=== PATIENT | female | born 1985 | race Caucasian/White ===

== ENCOUNTER 2017-12-27 15:54 | Inpatient (IN) | payer OTHER ==
[~2017-12-27] VITALS: Ht 162.6 cm; Wt 69.7 kg
[2017-12-27 16:41] VITALS: BP 119/66; PULSE 116; RESP 18; TEMP 97.8; O2SAT 99
[2017-12-27 17:48] LABS: AUTOMATED NEUTROPHIL # 14.2 TH/MM3 (1.8-7.7); BASOPHIL % 0.1 % (0.0-2.0); HEMATOCRIT 39.1 % (35.0-46.0); HEMOGLOBIN 13.2 GM/DL (11.6-15.3); LYMPH % 4.3 % (9.0-44.0); LYMPHOCYTE # 0.7 TH/MM3 (1.0-4.8); MEAN CELL VOLUME 84.7 FL (80.0-100.0); MEAN CORPUSCULAR HEMOGLOBIN 28.6 PG (27.0-34.0); MEAN CORPUSCULAR HGB CONC 33.8 % (32.0-36.0); MEAN PLATELET VOLUME 8.3 FL (7.0-11.0); MONO % 4.2 % (0.0-8.0); MONOCYTE # 0.7 TH/MM3 (0-0.9); NEUT % 91.4 % (16.0-70.0); PLATELET COUNT 236 TH/MM3 (150-450); RED BLOOD COUNT 4.62 MIL/MM3 (4.00-5.30); RED CELL DISTRIBUTION WIDTH 14.6 % (11.6-17.2); WHITE BLOOD COUNT 15.5 TH/MM3 (4.0-11.0)
[2017-12-27 18:03] LABS: ALBUMIN 3.6 GM/DL (3.4-5.0); ALT (GPT) 29 U/L (10-53); AST (GOT) 22 U/L (15-37); BLOOD UREA NITROGEN 15 MG/DL (7-18); CALCIUM 9.1 MG/DL (8.5-10.1); CHLORIDE 102 MEQ/L (98-107); CREATININE 1.19 MG/DL (0.50-1.00); GLOMERULAR FILTRATION RATE 53 ML/MIN (>89); GLUCOSE,RANDOM 141 MG/DL (74-106); SODIUM (NA) 135 MEQ/L (136-145)
[2017-12-27 18:06] LABS: ALKALINE PHOSPHATASE 64 U/L (45-117); TOTAL BILIRUBIN ADULT 0.6 MG/DL (0.2-1.0); TOTAL PROTEIN 7.8 GM/DL (6.4-8.2)
[2017-12-27] MEDS ORDERED: ACETAMINOPHEN 500 MG CPLT PO PRN (21:00)
--- NOTE | 2017-12-27 21:04 | PD ---
HPI Chief Complaint: Psychiatric Symptoms Time Seen by Provider: 19:57 Travel History International Travel<30 days: No Contact w/Intl Traveler<30days: No Traveled to known affect area: No History of Present Illness HPI Patient is a 32-year-old female presenting to the emergency department under Porter act for making suicidal homicidal ideations. Patient states that she has been depressed for several months, this is exacerbated due to being off of Abilify. Patient denies any current suicidal plan or previous suicide attempts. She does endorse marijuana and drug use. She denies any chest pain, shortness of breath, abdominal pain, nausea, vomiting. She does report body aches. Symptom onset has been gradual, exacerbated by lack of medication. PFSH Past Medical History Arthritis: No Blood Disorders: No Bipolar Disorder: Yes Anxiety: No Depression: Yes Chemotherapy: No Diminished Hearing: No Endocrine: No Gastrointestinal Disorders: No Genitourinary: No Immune Disorder: No Implanted Vascular Access Dvce: Yes Musculoskeletal: Yes Neurologic: No Reproductive: No Respiratory: No Immunizations Current: No (UNABLE TO ASSESS) Radiation Therapy: No ?: Not : 0 Past Surgical History Abdominal Surgery: No AICD: No Body Medical Devices: tens unit for back pain. Cardiac Surgery: No Ear Surgery: No Endocrine Surgery: No Eye Surgery: No Genitourinary Surgery: No Gynecologic Surgery: No Joint Replacement: No Neurologic Surgery: Yes Oral Surgery: No Pacemaker: No Thoracic Surgery: No Other Surgery: Yes ("I HAD 7 BACK SURGERIES.") Social History Alcohol Use: Yes (SOCIALLY ) Tobacco Use: Yes Substance Use: Yes Allergies-Medications (Allergen,Severity, Reaction): Coded Allergies: morphine (Unverified Allergy, Severe, Itching, 12/27/17) alprazolam (Unverified Allergy, Unknown, 12/27/17) Reported Meds & Prescriptions Reported Meds & Active Scripts Active Active Prescriptions or Reported Medications Unobtainable Review of Systems Except as stated in HPI: all other systems reviewed are Neg Musculoskeletal: Positive: Myalgias Psychiatric: Positive: Depression, Suicidal Ideations, Substance Abuse Physical Exam Narrative GENERAL: Well-developed, well-nourished, alert female. Resting in no acute distress. SKIN: Warm and dry. HEAD: Atraumatic. Normocephalic. EYES: Pupils equal and round. No scleral icterus. No injection or drainage. ENT: No nasal bleeding or discharge. Mucous membranes pink and moist. NECK: Trachea midline. No JVD. CARDIOVASCULAR: Regular rate and rhythm. RESPIRATORY: No accessory muscle use. Clear to auscultation. Breath sounds equal bilaterally. GASTROINTESTINAL: Abdomen soft, non-tender, nondistended. Hepatic and splenic margins not palpable. MUSCULOSKELETAL: Extremities without clubbing, cyanosis, or edema. No obvious deformities. NEUROLOGICAL: Awake and alert. No obvious cranial nerve deficits. Motor grossly within normal limits. Five out of 5 muscle strength in the arms and legs. Normal speech. PSYCHIATRIC: Appropriate mood and affect; insight and judgment normal. Data Data Last Documented VS Vital Signs Date Time Temp Pulse Resp B/P (MAP) Pulse Ox O2 Delivery O2 Flow Rate FiO2 12/27/17 22:44 97.8 105 17 115/65 (82) 95 Room Air Orders Orders Complete Blood Count With Diff (12/27/17 16:47) Comprehensive Metabolic Panel (12/27/17 16:47) Psych Screen (12/27/17 16:47) Drug Screen, Random Urine (12/27/17 16:47) Influenzae A/B Antigen (12/27/17 20:27) Acetaminophen (Tylenol) (12/27/17 21:00) Labs Laboratory Tests Test 12/27/17 17:11 12/27/17 18:17 White Blood Count 15.5 TH/MM3 Red Blood Count 4.62 MIL/MM3 Hemoglobin 13.2 GM/DL Hematocrit 39.1 % Mean Corpuscular Volume 84.7 FL Mean Corpuscular Hemoglobin 28.6 PG Mean Corpuscular Hemoglobin Concent 33.8 % Red Cell Distribution Width 14.6 % Platelet Count 236 TH/MM3 Mean Platelet Volume 8.3 FL Neutrophils (%) (Auto) 91.4 % Lymphocytes (%) (Auto) 4.3 % Monocytes (%) (Auto) 4.2 % Eosinophils (%) (Auto) 0.0 % Basophils (%) (Auto) 0.1 % Neutrophils # (Auto) 14.2 TH/MM3 Lymphocytes # (Auto) 0.7 TH/MM3 Monocytes # (Auto) 0.7 TH/MM3 Eosinophils # (Auto) 0.0 TH/MM3 Basophils # (Auto) 0.0 TH/MM3 CBC Comment DIFF FINAL Differential Comment Blood Urea Nitrogen 15 MG/DL Creatinine 1.19 MG/DL Random Glucose 141 MG/DL Total Protein 7.8 GM/DL Albumin 3.6 GM/DL Calcium Level 9.1 MG/DL Alkaline Phosphatase 64 U/L Aspartate Amino Transf (AST/SGOT) 22 U/L Alanine Aminotransferase (ALT/SGPT) 29 U/L Total Bilirubin 0.6 MG/DL Sodium Level 135 MEQ/L Potassium Level 3.5 MEQ/L Chloride Level 102 MEQ/L Carbon Dioxide Level 27.0 MEQ/L Anion Gap 6 MEQ/L Estimat Glomerular Filtration Rate 53 ML/MIN Urine Opiates Screen NEG Urine Barbiturates Screen NEG Urine Amphetamines Screen NEG Urine Benzodiazepines Screen NEG Urine Cocaine Screen POS Urine Cannabinoids Screen POS MDM Medical Decision Making Medical Screen Exam Complete: Yes Emergency Medical Condition: Yes Interpretation(s) Laboratory Tests Test 12/27/17 17:11 12/27/17 18:17 White Blood Count 15.5 TH/MM3 Red Blood Count 4.62 MIL/MM3 Hemoglobin 13.2 GM/DL Hematocrit 39.1 % Mean Corpuscular Volume 84.7 FL Mean Corpuscular Hemoglobin 28.6 PG Mean Corpuscular Hemoglobin Concent 33.8 % Red Cell Distribution Width 14.6 % Platelet Count 236 TH/MM3 Mean Platelet Volume 8.3 FL Neutrophils (%) (Auto) 91.4 % Lymphocytes (%) (Auto) 4.3 % Monocytes (%) (Auto) 4.2 % Eosinophils (%) (Auto) 0.0 % Basophils (%) (Auto) 0.1 % Neutrophils # (Auto) 14.2 TH/MM3 Lymphocytes # (Auto) 0.7 TH/MM3 Monocytes # (Auto) 0.7 TH/MM3 Eosinophils # (Auto) 0.0 TH/MM3 Basophils # (Auto) 0.0 TH/MM3 CBC Comment DIFF FINAL Differential Comment Blood Urea Nitrogen 15 MG/DL Creatinine 1.19 MG/DL Random Glucose 141 MG/DL Total Protein 7.8 GM/DL Albumin 3.6 GM/DL Calcium Level 9.1 MG/DL Alkaline Phosphatase 64 U/L Aspartate Amino Transf (AST/SGOT) 22 U/L Alanine Aminotransferase (ALT/SGPT) 29 U/L Total Bilirubin 0.6 MG/DL Sodium Level 135 MEQ/L Potassium Level 3.5 MEQ/L Chloride Level 102 MEQ/L Carbon Dioxide Level 27.0 MEQ/L Anion Gap 6 MEQ/L Estimat Glomerular Filtration Rate 53 ML/MIN Urine Opiates Screen NEG Urine Barbiturates Screen NEG Urine Amphetamines Screen NEG Urine Benzodiazepines Screen NEG Urine Cocaine Screen POS Urine Cannabinoids Screen POS Vital Signs Date Time Temp Pulse Resp B/P (MAP) Pulse Ox O2 Delivery O2 Flow Rate FiO2 12/27/17 22:44 97.8 105 17 115/65 (82) 95 Room Air 12/27/17 16:41 97.8 116 18 119/66 (83) 99 Vital Signs Date Time Temp Pulse Resp B/P (MAP) Pulse Ox O2 Delivery O2 Flow Rate FiO2 12/27/17 16:41 97.8 116 18 119/66 (83) 99 Differential Diagnosis Mood disorder versus substance abuse or suicidal ideations versus metabolic a abnormality versus other Narrative Course Patient is a 32-year-old female presenting to the emergency department under Porter act for suicidal ideations. Patient was tachycardic on arrival, on exam her heart rate has normalized. Labs and psych screen ordered. CBC with a white blood cell count of 15.5 with left shift Chemistry with a sodium of 135, creatinine 1.19. Urine drug screen is positive for cocaine and marijuana. Influenza is pending. Influenza is negative, heart rate has trended down. Patient is medically cleared for psychiatric evaluation. Diagnosis Primary Impression: Medical clearance for psychiatric admission Scripts Unable to Obtain Active Prescriptions or Reported Meds Condition: Stable Codi Joshi Dec 27, 2017 21:04
[2017-12-27 22:44] VITALS: BP 115/65; PULSE 105; RESP 17; TEMP 97.8; O2SAT 95
[2017-12-28 06:14] VITALS: BP 123/60; PULSE 103; RESP 18; TEMP 100.1; O2SAT 97
[2017-12-28 11:05] VITALS: BP 123/60; PULSE 99; RESP 20; O2SAT 96
[2017-12-28] MEDS ORDERED: diphenhydrAMINE HCL 50 MG/ML VIAL - HS PRN IM (20:45)
[2017-12-28] MEDS ORDERED: MAGNESIUM HYDROXIDE SUSP 30 ML CUP PO PRN (20:45)
[2017-12-28] MEDS ORDERED: ACETAMINOPHEN 325 MG TAB PO PRN (20:45)
[2017-12-28] MEDS ORDERED: diphenhydrAMINE HCL 50 MG CAP - HS PRN PO (20:45)
[2017-12-28] MEDS ORDERED: diphenhydrAMINE HCL 50 MG/ML VIAL IM PRN (20:45)
[2017-12-28] MEDS ORDERED: diphenhydrAMINE HCL 50 MG CAP PO PRN (20:45)
[2017-12-28] MEDS ORDERED: hydrOXYzine HCL 50 MG TAB PO PRN (20:45)
[2017-12-28] MEDS ORDERED: ALUMINUM/MAGNESIUM/SIMETH 30 ML CUP PO PRN (20:45)
[2017-12-28] MEDS: REMOVE OLD NICOTINE PATCH T-DERMAL SCH (21:00)
[2017-12-28 23:59] VITALS: BP 120/66; PULSE 97; RESP 17; TEMP 98.1; O2SAT 98
[2017-12-29 03:40] VITALS: BP 120/66; PULSE 97; RESP 17; TEMP 98.1; O2SAT 98
[2017-12-29 06:16] VITALS: BP 110/55; PULSE 88; RESP 17; TEMP 98.9; O2SAT 97
[2017-12-29 07:26] LABS: CHOLESTEROL 135 MG/DL (120-200)
[2017-12-29 07:37] LABS: CHOLESTEROL/ HDL RATIO 3.94 RATIO; HDL CHOLESTEROL 34.2 MG/DL (40.0-60.0); LDL CHOLESTEROL 73 MG/DL (0-99); TRIGLYCERIDES 137 MG/DL (42-150)
[2017-12-29] MEDS: NICOTINE 21 MG/24 HR PATCH T-DERMAL SCH (09:00)
--- NOTE | 2017-12-29 15:10 | HHI.HP ---
Provisional Diagnosis Admission Date Dec 28, 2017 at 16:42 [place] I. Adjustment disorder with mixed disturbances of emotion and conduct f 43.25, polysubstance abuse F 19.10 Certification of Person's Competence To Provide Express and Informed Consent I have personally examined Piper Kearns , a person being served at [facility] on, Dec 29, 2017 14:51. Express and informed consent means consent voluntarily given in writing, by a competent person, after sufficient explanation and disclosure of the subject matter involved to enable the person to make a knowing and willful decision without any element of force, fraud, deceit, duress, or other form of constraint or coercion. This person is 18 years of age or older, is not now known to be incompetent to consent to treatment with a guardian advocate, and does not have a health care surrogate or proxy currently making medical treatment decisions. I have found this person to be one of the following: []xxxx Competent to provide express and informed consent, as defined above, for voluntary admission to this facility and is competent to provide express and informed consent for treatment. He/she has the consistent capacity to make well reasoned, willful, and knowing decisions concerning his or her medical or mental health treatment. The person fully and consistently understands the purpose of the admission for examination/placement and is fully capable of personally exercising all rights assured [place] Incompetent to provide express and informed consent to voluntary admission, and this is incompetent to provide express and informed consent to treatment. The person must be transferred to involuntary status and a petition for a guardian advocate filed with the Circuit Court. [] Refusing to provide express and informed consent to voluntary admission but is competent to provide express and informed consent for treatment. The person must be discharged or transferred to involuntary status. Form shall be completed within 24 hours of a person's arrival at the receiving facility and filed in the clinical record of each person: 1. Admitted on a voluntary basis 2. Permitted to provide express and informed consent to his/her own treatment 3. Allowed to transfer from involuntary to voluntary status 4. Prior to permitting a person to consent to his or her own treatment after having been previously found incompetent to consent to treatment. History of Present Illness Capacity: Has Capacity Psych Chief Complaint: depressed suicidal ideation HPI Patient is a 32-year-old white female who initially came to the first apartment under [facility] with complaints of depression suicidal ideation. Patient seen screened in the emergency department urine toxicology positive for cocaine and marijuana. Patient seen in her room with nurse Shellie and medical student Hemant. Patient states she has been living with a boyfriend of about the past 4 months intermittently with somewhat chaotic relationship. 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 She acknowledges daily use of cocaine or crack and she snorts it. She uses marijuana quite frequently also. Patient has a multiple year history of multiple drug abuse including intravenous drug use. She has used opiates benzodiazepines mushrooms cocaine she is also use Oksana's. She states she had a period of time when she used excess alcohol did have a DUI. She has had multiple incarcerations related to substance use in behavior also. She has a long contact also with mental health system patient states she has been multiple times at [facility] for both mental health reasons and addictions. Is been tried on multiple medications in the past on Tuesday very successful. Perhaps because she has never had it extended length of sobriety except while incarcerated. Patient states that she was at [facility] a week or 2 ago was discharged on Abilify which she never filled. She was incarcerated in July 2017 for drug related issues. It appears the boyfriend found out about patients prostitution and K throughout the house. He is done this in the past. She has had homeless stretches during this time. Patient acknowledges the sad mood, with initial and mid insomnia, decreased concentration and attention. There is irritability. There is a vague suicidal ideation. She states she would not take the suicide pill. She denies voices or visions. Patient states she has been sober house in the past called [facility] for about 5 months before she relapsed and was released from there. Patient states she was briefly once, has never been , is on no control. She states her periods are regular. Patient states she is adopted was adopted at 18 months old and presents family. Her younger brother also was adopted by the same couple. They also have an older "brother" was adopted it appears the patient has burned [place] with her adoptive parents and with her brother. Patient states the first substance use occurred at around 19 years of age. Patient states she graduated college the [employer] and has one year of graduate school in psychology. At this time patient doesn't meet criteria for further observation and assessment. The foot she does have the capacity to sign voluntarily to sign for medication thus I'll lift the Porter act allow her sign voluntary. At this time we will continue observation drug-free consideration of an antidepressant or mood stabilizers will be made him next 24-36 hours. Discussed placement issues. Patient would be willing to try another female sober living house perhaps in town here. Though she'll be willing to relocate towards [place] or [place] or [facility]. Will refrain from any benzodiazepines or opiates patient may have Atarax if she needs it Tylenol and Benadryl for sleep patient states well and has full she played soccer and played soccer briefly in college so she hurt her back. 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 She also states she had a spinal cord stimulator implanted in her back 10 years ago that is not working at the present time Review of Systems Constitutional: DENIES: Diaphoretic episodes, Fatigue, Fever, Weight gain, Weight loss, Chills, Dizziness, Change in appetite, Night Sweats Endocrine: DENIES: Abnorml menstrual pattern, Heat/cold intolerance, Polydipsia , Polyuria, Polyphagia Ears, nose, mouth, throat: DENIES: Tinnitus, Hearing loss, Vertigo, Nasal discharge, Oral lesions, Throat pain, Hoarseness, Ear Pain, Running Nose, Epistaxis, Sinus Pain, Toothache, Odynophagia Respiratory: DENIES: Apneas, Cough, Snoring, Wheezing, Hemoptysis, Sputum production, Shortness of breath Cardiovascular: DENIES: Chest pain, Palpitations, Syncope, Dyspnea on Exertion , PND, Lower Extremity Edema, Orthopnea, Claudication Gastrointestinal: DENIES: Abdominal pain, Black stools, Bloody stools, Constipation, Diarrhea, Nausea, Vomiting, Difficulty Swallowing, Anorexia Genitourinary: DENIES: Abnormal vaginal bleeding, Dysmenorrhea, Dyspareunia, Sexual dysfunction, Urinary frequency, Urinary incontinence, Urgency, Hematuria , Dysuria, Nocturia, Vaginal discharge Musculoskeletal: DENIES: Joint pain, Muscle aches, Stiffness, Joint Swelling, Back pain, Neck pain Integumentary: DENIES: Abnormal pigmentation, Pruritus, Rash, Nail changes, Breast masses, Breast skin changes, Nipple discharge Hematologic/lymphatic: DENIES: Bruising, Lymphadenopathy Immunologic/allergic: DENIES: Eczema, Urticaria Neurologic: DENIES: Abnormal gait, Headache, Localized weakness, Paresthesias, Seizures, Speech Problems, Tremor, Poor Balance Psychiatric: COMPLAINS OF: Anxiety, Suicidal Ideation Past Psych History Psychological trauma history Patient vague about any past physical or sexual abuse Violence risk - others (6 mos) Low Violence risk - self (6 mos) Low to moderate Substance Abuse History Drugs/Alcohol past 12 months Activity abuse or alcohol marijuana and cocaine multiple other drugs Past Family Social History Coded Allergies: morphine (Unverified Allergy, Severe, Itching, 12/27/17) alprazolam (Unverified Allergy, Unknown, 12/27/17) Unable to Obtain Active Prescriptions or Reported Meds Current Medications Medications (Trade) Dose Ordered Sig/[place]rona Route Start Time Stop Time Status Last Admin (Tylenol) 500 mg Q6H PRN PO 12/27/17 21:00 12/27/17 21:11 (Atarax) 50 mg Q6H PRN PO 12/28/17 20:45 (Benadryl) 50 mg HS PRN PO 12/28/17 20:45 (Milk Of Magnesia Liq) 30 ml DAILY PRN PO 12/28/17 20:45 (Mag-Al Plus Susp Liq) 30 ml Q6H PRN PO 12/28/17 20:45 (Habitrol 21 Mg Patch.24 Hr) 1 patch DAILY T-DERMAL 12/29/17 09:00 Miscellaneous Information 1 HS T-DERMAL 12/28/17 21:00 Family Psych History Patient adopted though feels biological father may have some mental health issues Social History Orders living with boyfriend has prostituted herself Patient's Strengths (min. 2) Patient verbal educated cooperative Physical Exam Patient seen screen in ED exam reviewed and agreed with patient sitting quietly in her room she is in no acute distress, is in no respiratory distress, no complaints abdominal pain. Patient moving all 4 extremities without difficulty no abnormal motor movements noted Vital Signs Vital Signs Date Time Temp Pulse Resp B/P (MAP) Pulse Ox O2 Delivery O2 Flow Rate FiO2 12/29/17 06:16 98.9 88 17 110/55 (73) 97 12/28/17 11:05 Room Air Lab Results Test 2/8/18 06:09 Triglycerides Level 137 MG/DL Cholesterol Level 135 MG/DL LDL Cholesterol 73 MG/DL HDL Cholesterol 34.2 MG/DL Cholesterol/HDL Ratio 3.94 RATIO Thyroid Stimulating Hormone 3rd Gen 1.080 uIU/ML Date/Time Source Procedure Growth Status 12/27/17 21:15 Nasal Washing Influenza Types A,B Antigen (LEAH) - Final NEGATIVE FOR FLU A AND B ANTIGEN.... Complete Mental Status Examination Appearance: Appropriate Consciousness: Alert Orientation: x4 Motor Activity: Normal gait Speech: Unremarkable Language: Adequate Fund of Knowledge: Adequate Attention and Concentration: Adequate Memory: Unremarkable Mood: Sad Affect: Other (decrease range of motion intensity) Thought Process & Associations: Intact Thought Content: Appropriate Hallucination Type: None Delusion Type: None Suicidal Ideation: Yes (denies would not take suicide pill) Suicidal Plan: No Suicidal Intention: No Homicidal Ideation: No Homicidal Plan: No Homicidal Intention: No Insight: Fair Judgment: Impulsive Assessment & Plan Problem List: (1) Adjustment disorder with mixed disturbance of emotions and conduct ICD Codes: F43.25 - Adjustment disorder with mixed disturbance of emotions and conduct (2) Polysubstance abuse ICD Codes: F19.10 - Other psychoactive substance abuse, uncomplicated Assessment & Plan Estimated LOS: 5-7 days patient meets criteria for inpatient psychiatric hospitalization at this time for further observation assessment of possible medication management. I she does have capacity thus I'll lift Porter act allow her sign voluntary. Will refrain from any specific medications at the present time Discharge Planning We are assessing for possible placement in a female sober living facility Request HC Surrog/Guard Advoc?: No Ketan Pretty MD Dec 29, 2017 15:10
[2017-12-29 16:01] LABS: HEMOGLOBIN A1C 5.5 % (4.3-6.0)
[2017-12-29 17:28] VITALS: BP 122/81; PULSE 95; RESP 18; TEMP 98.7; O2SAT 98
[2017-12-29] MEDS: REMOVE OLD NICOTINE PATCH T-DERMAL SCH (20:47)
[2017-12-29] MEDS: IBUPROFEN 600 MG TAB PO PRN (22:12)
[2017-12-30 05:18] VITALS: BP 113/67; PULSE 79; RESP 17; TEMP 97.2; O2SAT 98
[2017-12-30] MEDS: IBUPROFEN 600 MG TAB PO PRN (05:21)
[2017-12-30] MEDS: NICOTINE 21 MG/24 HR PATCH T-DERMAL SCH (08:45)
[2017-12-30] MEDS ORDERED: NICOTINE 21 MG/24 HR PATCH T-DERMAL SCH (09:00)
--- NOTE | 2017-12-30 15:09 | HHI.DS ---
Psychiatry Discharge Summary Inpatient Psychiatric care?: Yes Advance Directive: No Reason Not Provided: Due to Patient Condition Mental Health AdvanceDirective: No Health Care Proxy: No Admission Admission Date Dec 28, 2017 at 16:42 Admission Diagnosis: (1) Adjustment disorder with mixed disturbance of emotions and conduct ICD Code: F43.25 - Adjustment disorder with mixed disturbance of emotions and conduct (2) Polysubstance abuse ICD Code: F19.10 - Other psychoactive substance abuse, uncomplicated Brief History Patient is a 32-year-old white female who initially came to the first apartment under [facility] with complaints of depression suicidal ideation. Patient seen screened in the emergency department urine toxicology positive for cocaine and marijuana. Patient seen in her room with nurse Shellie and medical student Hemant. Patient states she has been living with a boyfriend of about the past 4 months intermittently with somewhat chaotic relationship. 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 She acknowledges daily use of cocaine or crack and she snorts it. She uses marijuana quite frequently also. Patient has a multiple year history of multiple drug abuse including intravenous drug use. She has used opiates benzodiazepines mushrooms cocaine she is also use Oksana's. She states she had a period of time when she used excess alcohol did have a DUI. She has had multiple incarcerations related to substance use in behavior also. She has a long contact also with mental health system patient states she has been multiple times at [facility] for both mental health reasons and addictions. Is been tried on multiple medications in the past on Tuesday very successful. Perhaps because she has never had it extended length of sobriety except while incarcerated. Patient states that she was at [facility] a week or 2 ago was discharged on Abilify which she never filled. She was incarcerated in July 2017 for drug related issues. It appears the boyfriend found out about patients prostitution and K throughout the house. He is done this in the past. She has had homeless stretches during this time. Patient acknowledges the sad mood, with initial and mid insomnia, decreased concentration and attention. There is irritability. There is a vague suicidal ideation. She states she would not take the suicide pill. She denies voices or visions. Patient states she has been sober house in the past called [facility] for about 5 months before she relapsed and was released from there. Patient states she was briefly once, has never been , is on no control. She states her periods are regular. Patient states she is adopted was adopted at 18 months old and presents family. Her younger brother also was adopted by the same couple. They also have an older "brother" was adopted it appears the patient has burned [place] with her adoptive parents and with her brother. Patient states the first substance use occurred at around 19 years of age. Patient states she graduated college the [employer] criminology and psychology and has one year of graduate school in psychology. At this time patient doesn't meet criteria for further observation and assessment. The foot she does have the capacity to sign voluntarily to sign for medication thus I'll lift the Porter act allow her sign voluntary. At this time we will continue observation drug-free consideration of an antidepressant or mood stabilizers will be made him next 24-36 hours. Discussed placement issues. Patient would be willing to try another female sober living house perhaps in town here. Though she'll be willing to relocate towards [place] or [place] [facility]. Will refrain from any benzodiazepines or opiates patient may have Atarax if she needs it Tylenol and Benadryl for sleep patient states well and has full she played soccer and played soccer briefly in college so she hurt her back. 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 She also states she had a spinal cord stimulator implanted in her back 10 years ago that is not working at the present time Tobacco Use In Past 30 Days: No Tobacco Past 30 Days Alcohol Use: Never Hospital Course Patient's hospital course was uneventful. Patient slept well last night, is calm cooperative today. Patient seen in day room with medical student Hemant, patient states she feels much better. She has made phone calls investigating sober living facilities. She feels she can continue this investigation as an outpatient. Patient is called a boyfriend he is willing to have her stay in the apartment. Patient states she is committed to absolute abstinence. At this time patient no longer meets criteria for acute inpatient psychiatric hospitalization. While there may be some doubt in my mind that the patient has capacity to maintain her sobriety-she does not meet criteria for inpatient psychiatric care. Patient to be discharged to herself with no Rx by me referral to [facility] outpatient substance abuse assessment, and referred to AA/NA, and strong suggestion that she continue investigating sober living situations Results Blood Pressure 113 / 67 Vital Signs Date Time Temp Pulse Resp B/P (MAP) Pulse Ox O2 Delivery O2 Flow Rate FiO2 12/30/17 05:18 97.2 79 17 113/67 (82) 98 12/28/17 11:05 Room Air Laboratory Tests Test 12/27/17 17:11 12/27/17 18:17 12/29/17 06:09 White Blood Count 15.5 TH/MM3 (4.0-11.0) Neutrophils (%) (Auto) 91.4 % (16.0-70.0) Lymphocytes (%) (Auto) 4.3 % (9.0-44.0) Neutrophils # (Auto) 14.2 TH/MM3 (1.8-7.7) Lymphocytes # (Auto) 0.7 TH/MM3 (1.0-4.8) Creatinine 1.19 MG/DL (0.50-1.00) Random Glucose 141 MG/DL (74-106) Sodium Level 135 MEQ/L (136-145) Estimat Glomerular Filtration Rate 53 ML/MIN (>89) Urine Cocaine Screen POS (NEG) Urine Cannabinoids Screen POS (NEG) HDL Cholesterol 34.2 MG/DL (40.0-60.0) Laboratory Results Test 12/29/17 06:09 Cholesterol Level 135 MG/DL (120-200) HDL Cholesterol 34.2 MG/DL (40.0-60.0) Hemoglobin A1c 5.5 % (4.3-6.0) LDL Cholesterol 73 MG/DL (0-99) Triglycerides Level 137 MG/DL (42-150) Summary of Procedures None done Pending results at discharge: No Medications # of Antipsychotic meds at D/C: 0 Approp Antipsych med options 1 - Minimum of three failed multiple trials of monotherapy. 2 - Documented plan to taper to monotherapy due to previous use of multiple meds OR cross-taper in progress at D/C. 3 - Documentation of augmentation of Clozapine. 4 - Justification other than those listed in allowable values 1-3, document here : Discharge Discharge Date: Dec 30, 2017 Discharge Diagnosis: (1) Adjustment disorder with mixed disturbance of emotions and conduct Diagnosis: Principal ICD Code: F43.25 - Adjustment disorder with mixed disturbance of emotions and conduct (2) Polysubstance abuse Diagnosis: Secondary ICD Code: F19.10 - Other psychoactive substance abuse, uncomplicated Pt Condition on Discharge: Stable Discharge Disposition: Discharge Home Discharge Instructions Diet Instructions: As Tolerated, No Restrictions Activities you can perform: Regular-No Restrictions Scheduled Appointment: follow-up PCP, referred to NA/AA Discharge Time > 30 minutes Mental Status Examination Appearance: Appropriate Consciousness: Alert Orientation: x4 Motor Activity: Normal gait Speech: Unremarkable Language: Adequate Fund of Knowledge: Adequate Attention and Concentration: Adequate Memory: Unremarkable Mood: Sad Affect: Other (decrease range of motion intensity) Thought Process & Associations: Intact Thought Content: Appropriate Hallucination Type: None Delusion Type: None Suicidal Ideation: Yes (denies would not take suicide pill) Suicidal Plan: No Suicidal Intention: No Homicidal Ideation: No Homicidal Plan: No Homicidal Intention: No Insight: Fair Judgment: Impulsive Discharge/Advance Care Plan Health Problems: (1) Adjustment disorder with mixed disturbance of emotions and conduct (2) Polysubstance abuse Goals to promote your health * To prevent worsening of your condition and complications * To maintain your health at the optimal level Directions to meet your goals Take your medications as prescribed Follow your dietary instruction Follow activity as directed Keep your appointments as scheduled Take your immunizations and boosters as scheduled If your symptoms worsen call your PCP, if no PCP go to Urgent Care Center or Emergency Room For 24/ questions related to your inpatient stay or results of tests pending at discharge, please contact Dr. Ketan Pretty at Smoking is Dangerous to Your Health. Avoid second hand smoking Ketan Pretty MD Dec 30, 2017 15:09
== END 2017-12-30 18:35 | disposition home or self-care (01) | DRG 882 ==
LOC: NEDAMB 15:54 → NEDA 12-28 16:42 → H260 12-28 17:21
PROVIDERS: ADMIT Psychiatry & Neurology Psychiatry; ATTEND Psychiatry & Neurology Psychiatry
DX: F43.25 Adjustment disorder with mixed disturbance of emotions and conduct (principal); R45.851 Suicidal ideations; R45.850 Homicidal ideations; R00.0 Tachycardia, unspecified; F14.10 Cocaine abuse, uncomplicated; F12.10 Cannabis abuse, uncomplicated; Z88.5 Allergy status to narcotic agent; Z72.0 Tobacco use
CPT/HCPCS: 80053; 80061; 80307; 83036; 84443; 85025; 87804

== ENCOUNTER 2018-01-08 20:56 | Emergency (ER) | payer SELFPAY ==
[~2018-01-08] VITALS: Ht 162.6 cm; Wt 72.0 kg
[2018-01-08 21:01] VITALS: BP 129/60; PULSE 107; RESP 20; TEMP 96.5; O2SAT 100
[2018-01-08] MEDS ORDERED: SODIUM CHLOR 0.9% 1000 ML INJ 1,000 ML IV SCH (21:30)
[2018-01-08] MEDS ORDERED: ONDANSETRON HCL 4 MG/2 ML VIAL IVP ONE (21:30)
[2018-01-08] MEDS ORDERED: KETOROLAC TROMETHAMINE 30 MG/ML (IVP) VIAL IVP ONE (21:30)
[2018-01-08] MEDS ORDERED: LIDOCAINE 2%/EPINEPHrine 1:100,000 20ML MDV NERV BLOCK ONE (21:30)
[2018-01-08] MEDS ORDERED: MORPHINE SULFATE 4 MG/ML INJ IV PUSH ONE (21:30)
[2018-01-08] MEDS ORDERED: SODIUM CHLORIDE 0.9% FLUSH 10 ML FLUSH IV FLUSH PRN (21:30)
--- NOTE | 2018-01-08 21:35 | PD ---
HPI Chief Complaint: Dog Barber Problem/Complaint Time Seen by Provider: 21:30 Travel History International Travel<30 days: No Contact w/Intl Traveler<30days: No Traveled to known affect area: No History of Present Illness HPI 32-year-old female presents emergency department with 4 day history of worsening left-sided vaginal pain erythema and swelling. Patient denies fever, but does not "feel well". Patient has no history of this in the past. She denies urinary symptoms or vaginal discharge. Pain is 10 out of 10. 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 Patient has no known drug allergies. PFSH Past Medical History Arthritis: No Blood Disorders: No Bipolar Disorder: Yes Anxiety: No Depression: Yes Cancer: No Cardiovascular Problems: No Chemotherapy: No Diabetes: No Diminished Hearing: No Endocrine: No Gastrointestinal Disorders: No Genitourinary: No Headaches: No Immune Disorder: No Implanted Vascular Access Dvce: Yes Musculoskeletal: Yes Neurologic: No Psychiatric: Yes Reproductive: No Respiratory: No Immunizations Current: No (UNABLE TO ASSESS) Radiation Therapy: No Seizures: No Tetanus Vaccination: Unknown Influenza Vaccination: No ?: Unknown LMP: 12/31/2017 : 0 Past Surgical History Abdominal Surgery: No AICD: No Body Medical Devices: tens unit for back pain. Cardiac Surgery: No Ear Surgery: No Endocrine Surgery: No Eye Surgery: No Genitourinary Surgery: No Gynecologic Surgery: No Insulin Pump: No Joint Replacement: No Neurologic Surgery: Yes Oral Surgery: No Pacemaker: No Thoracic Surgery: No Other Surgery: Yes ("I HAD 7 BACK SURGERIES.") Social History Alcohol Use: No Tobacco Use: No Substance Use: Yes (CRACK COCAINE, DXM (COLD MEDICINE)) Allergies-Medications (Allergen,Severity, Reaction): Coded Allergies: No Known Allergies (Unverified , 01/08/18) Reported Meds & Prescriptions Reported Meds & Active Scripts Active Active Prescriptions or Reported Medications Unobtainable Review of Systems General / Constitutional: No: Fever Eyes: No: Visual changes HENT: No: Headaches Cardiovascular: No: Chest Pain or Discomfort Respiratory: No: Shortness of Breath Gastrointestinal: No: Abdominal Pain Genitourinary: No: Dysuria Musculoskeletal: No: Pain Skin: Positive Lesions, No Rash Neurologic: No: Weakness Psychiatric: No: Depression Endocrine: No: Polydipsia Hematologic/Lymphatic: No: Easy Bruising Physical Exam Narrative GENERAL: Moderate distress SKIN: Warm and dry. Normal color. Normal turgor. HEAD: Atraumatic. Normocephalic. EYES: Pupils equal and round. No scleral icterus. No injection or drainage. ENT: No nasal bleeding or discharge. Mucous membranes pink and moist. NECK: Trachea midline. No JVD. CARDIOVASCULAR: Regular rate and rhythm. RESPIRATORY: No accessory muscle use. Clear to auscultation. Breath sounds equal bilaterally. GASTROINTESTINAL: Abdomen soft, non-tender, nondistended. Hepatic and splenic margins not palpable. GENITALIA: Lateral labia is hot, red, swollen and extremely tender consistent with Bartholin's gland cyst. No active draining noted MUSCULOSKELETAL: Extremities without clubbing, cyanosis, or edema. No obvious deformities. NEUROLOGICAL: Awake and alert. No obvious cranial nerve deficits. Motor grossly within normal limits. Five out of 5 muscle strength in the arms and legs. Normal speech. PSYCHIATRIC: Appropriate mood and affect; insight and judgment normal. Data Data Last Documented VS Vital Signs Date Time Temp Pulse Resp B/P (MAP) Pulse Ox O2 Delivery O2 Flow Rate FiO2 01/08/18 21:01 96.5 107 20 129/60 (83) 100 Room Air Orders Orders Complete Blood Count With Diff (01/08/18 21:30) Comprehensive Metabolic Panel (01/08/18 21:30) Lactic Acid (01/08/18 21:30) Iv Access Insert/Monitor (01/08/18 21:30) Ecg Monitoring (01/08/18 21:30) Oximetry (01/08/18 21:30) Morphine Inj (Morphine Inj) (01/08/18 21:30) Ondansetron Inj (Zofran Inj) (01/08/18 21:30) Sodium Chlor 0.9% 1000 Ml Inj (Ns 1000 M (01/08/18 21:30) Sodium Chloride 0.9% Flush (Ns Flush) (01/08/18 21:30) Ketorolac Inj (Toradol Inj) (01/08/18 21:30) Lidocai-Epi 2%-1:100,000 Inj (Xylocaine- (01/08/18 21:30) Clindamycin 600 Mg/Ns Premix (Cleocin 60 (01/08/18 22:00) Abscess Culture And Gram Stain (01/08/18 21:58) Labs Laboratory Tests Test 01/08/18 21:45 [facility] Medical Decision Making Medical Screen Exam Complete: Yes Emergency Medical Condition: Yes Differential Diagnosis Cellulitis. Abscess. Bartholin's gland cyst. Narrative Course Patient is medically stable at time of exam. Labs ordered including CBC, CMP, IV access is obtained the patient was given 4 mg Zofran IV as well as 2 mg morphine IV. I&D of abscess is obtained and wound cultures sent to the lab. Patient is given 600 mg clindamycin IV. Patient will be sent home on Bactrim DS twice daily 7 days. Patient also given ibuprofen 600 mg 3 times daily #30 Patient to follow-up in 2 days for wound check/packing removal Patient can return sooner as needed. Procedures Procedure Narrative After the risks and benefits were discussed the following procedure was performed: INCISION AND DRAINAGE OF ABSCESS: The area was prepped and was sterilely draped. A subcutaneous wheal of 2 % Xylocaine with epi with a total number 3 mL was used to anesthetize the area. The area was properly anesthetized. A number 11 scalpel was used to make a 1-cm incision across the area of the abscess. Cultures were obtained. The abscess was drained an irrigated with normal saline. Quarter inch iodoform packing was placed in the wound. Sterile dressing applied. Patient advised to have packing removed in two days. Diagnosis Primary Impression: Bartholin's gland cyst Additional Impression: Cellulitis Qualified Codes: L03.818 - Cellulitis of other sites Patient Instructions: Abscess Incision and Drainage (DC), General Instructions Additional Instructions: I&D of abscess is obtained and wound cultures sent to the lab. Patient is given 600 mg clindamycin IV. Patient will be sent home on Bactrim DS twice daily 7 days. Patient also given ibuprofen 600 mg 3 times daily #30 Patient to follow-up in 2 days for wound check/packing removal Patient can return sooner as needed. Med/Other Pt SpecificInfo: Prescription(s) given, Wound Care Scripts Unable to Obtain Active Prescriptions or Reported Meds Disposition: 01 DISCHARGE HOME Condition: Stable Ezequiel Nascimento Jan 08, 2018 21:35
[2018-01-08] MEDS ORDERED: CLINDAMYCIN 600 MG/NS PREMIX 50 ML IV ONE (22:00)
[2018-01-08] MEDS ORDERED: IBUP-232 PO (22:04)
[2018-01-08] MEDS ORDERED: BACT800T5 PO (22:04)
[2018-01-08 22:09] LABS: ALBUMIN 3.1 GM/DL (3.4-5.0); AUTOMATED NEUTROPHIL # 14.3 TH/MM3 (1.8-7.7); BASOPHIL % 0.1 % (0.0-2.0); BICARBONATE 25.5 MEQ/L (21.0-32.0); BLOOD UREA NITROGEN 12 MG/DL (7-18); CALCIUM 9.1 MG/DL (8.5-10.1); CHLORIDE 102 MEQ/L (98-107); CREATININE 1.25 MG/DL (0.50-1.00); EOSINOPHIL % 0.1 % (0.0-4.0); GLOMERULAR FILTRATION RATE 50 ML/MIN (>89); GLUCOSE,RANDOM 107 MG/DL (74-106); HEMATOCRIT 37.1 % (35.0-46.0); HEMOGLOBIN 12.5 GM/DL (11.6-15.3); LYMPH % 9.6 % (9.0-44.0); LYMPHOCYTE # 1.6 TH/MM3 (1.0-4.8); MEAN CELL VOLUME 82.8 FL (80.0-100.0); MEAN CORPUSCULAR HEMOGLOBIN 27.8 PG (27.0-34.0); MEAN CORPUSCULAR HGB CONC 33.5 % (32.0-36.0); MEAN PLATELET VOLUME 7.6 FL (7.0-11.0); MONO % 3.2 % (0.0-8.0); MONOCYTE # 0.5 TH/MM3 (0-0.9); PLATELET COUNT 297 TH/MM3 (150-450); RED BLOOD COUNT 4.49 MIL/MM3 (4.00-5.30); RED CELL DISTRIBUTION WIDTH 14.8 % (11.6-17.2); SODIUM (NA) 136 MEQ/L (136-145); WHITE BLOOD COUNT 16.5 TH/MM3 (4.0-11.0)
[2018-01-08 22:10] LABS: ALT (GPT) 36 U/L (10-53); AST (GOT) 23 U/L (15-37)
[2018-01-08 22:12] LABS: ALKALINE PHOSPHATASE 76 U/L (45-117); TOTAL BILIRUBIN ADULT 0.3 MG/DL (0.2-1.0); TOTAL PROTEIN 8.6 GM/DL (6.4-8.2)
[2018-01-08 22:51] VITALS: RESP 20
== END 2018-01-08 23:44 | disposition home or self-care (01) ==
LOC: NEPD 20:56
DX: N75.0 Cyst of Bartholin's gland (principal); L03.818 Cellulitis of other sites
CPT/HCPCS: 10061; 80053; 83605; 85025; 96361; 96374; 96375; 99284; J1885; J2270; J2405; J7030

== ENCOUNTER 2018-01-10 13:14 | Emergency (ER) | payer SELFPAY ==
[~2018-01-10] VITALS: Ht 162.6 cm; Wt 72.5 kg
[~2018-01-10 13:14] MED LIST: BACT800T5 PO; IBUP-232 PO
[2018-01-10 13:15] VITALS: BP 134/80; PULSE 78; RESP 16; TEMP 98.7; O2SAT 100
[2018-01-10] MEDS ORDERED: IOHEXOL 350 MG/ML 10 ML VIAL (for RAD DIAG) IVCONTRAST ONE (13:15)
[2018-01-10] MEDS ORDERED: SODIUM CHLOR 0.9% 1000 ML INJ 1,000 ML IV ONE (15:15)
[2018-01-10] MEDS ORDERED: KETOROLAC TROMETHAMINE 30 MG/ML (IVP) VIAL IV PUSH ONE ×2 (15:15→23:45)
[2018-01-10 15:55] LABS: AUTOMATED NEUTROPHIL # 10.9 TH/MM3 (1.8-7.7); BASOPHIL % 0.1 % (0.0-2.0); EOSINOPHIL % 0.2 % (0.0-4.0); HEMATOCRIT 33.4 % (35.0-46.0); HEMOGLOBIN 11.1 GM/DL (11.6-15.3); LYMPH % 12.2 % (9.0-44.0); LYMPHOCYTE # 1.6 TH/MM3 (1.0-4.8); MEAN CELL VOLUME 83.9 FL (80.0-100.0); MEAN CORPUSCULAR HEMOGLOBIN 27.9 PG (27.0-34.0); MEAN CORPUSCULAR HGB CONC 33.3 % (32.0-36.0); MEAN PLATELET VOLUME 7.7 FL (7.0-11.0); MONO % 4.9 % (0.0-8.0); MONOCYTE # 0.6 TH/MM3 (0-0.9); NEUT % 82.6 % (16.0-70.0); PLATELET COUNT 342 TH/MM3 (150-450); RED BLOOD COUNT 3.98 MIL/MM3 (4.00-5.30); RED CELL DISTRIBUTION WIDTH 14.8 % (11.6-17.2); WHITE BLOOD COUNT 13.1 TH/MM3 (4.0-11.0)
[2018-01-10 16:29] LABS: ALBUMIN 2.9 GM/DL (3.4-5.0); AST (GOT) 35 U/L (15-37); BICARBONATE 25.3 MEQ/L (21.0-32.0); BLOOD UREA NITROGEN 8 MG/DL (7-18); CALCIUM 8.7 MG/DL (8.5-10.1); CHLORIDE 106 MEQ/L (98-107); CREATININE 1.02 MG/DL (0.50-1.00); GLOMERULAR FILTRATION RATE 63 ML/MIN (>89); GLUCOSE,RANDOM 78 MG/DL (74-106); SODIUM (NA) 141 MEQ/L (136-145)
[2018-01-10 16:35] LABS: ALKALINE PHOSPHATASE 74 U/L (45-117); ALT (GPT) 38 U/L (10-53); TOTAL BILIRUBIN ADULT 0.2 MG/DL (0.2-1.0); TOTAL PROTEIN 8.3 GM/DL (6.4-8.2)
[2018-01-10] MEDS ORDERED: CLINDAMYCIN 600 MG/NS PREMIX 50 ML IV ONE (16:45)
--- NOTE | 2018-01-10 16:56 | PD ---
HPI Chief Complaint: Skin Problem Time Seen by Provider: 14:49 Travel History International Travel<30 days: No Contact w/Intl Traveler<30days: No Traveled to known affect area: No History of Present Illness HPI Patient is a 32 year old female who comes in complaining of vaginal pain. She was here a few days ago and had a Bartholin's cyst drained and packed. She was given a prescription for Bactrim, which she did not get filled because she said she could not afford it. She did not note was free at [employer]. She says the pain seems to have gotten worse since then. She says there is slight discharge , but not much. She denies fever or chills. She also reports that she is feeling very depressed because she is homeless and she is trying not to use drugs. She would like to see psychiatry. Nothing seems to relieve her symptoms. Any movement or touching the area makes it worse. Severity is moderate. PFSH Past Medical History Arthritis: No Blood Disorders: No Bipolar Disorder: Yes Anxiety: No Depression: Yes Cancer: No Cardiovascular Problems: No Chemotherapy: No Diabetes: No Diminished Hearing: No Endocrine: No Gastrointestinal Disorders: No Genitourinary: No Headaches: No Immune Disorder: No Implanted Vascular Access Dvce: Yes Musculoskeletal: Yes Neurologic: No Psychiatric: Yes Reproductive: No Respiratory: No Immunizations Current: No (UNABLE TO ASSESS) Radiation Therapy: No Seizures: No ?: Not LMP: 01/05/2018 : 0 Past Surgical History Abdominal Surgery: No AICD: No Body Medical Devices: tens unit for back pain. Cardiac Surgery: No Ear Surgery: No Endocrine Surgery: No Eye Surgery: No Genitourinary Surgery: No Gynecologic Surgery: No Insulin Pump: No Joint Replacement: No Neurologic Surgery: Yes Oral Surgery: No Pacemaker: No Thoracic Surgery: No Other Surgery: Yes ("I HAD 7 BACK SURGERIES.") Social History Alcohol Use: No Tobacco Use: No Substance Use: Yes (CRACK COCAINE, DXM (COLD MEDICINE)) Allergies-Medications (Allergen,Severity, Reaction): Coded Allergies: No Known Allergies (Unverified , 01/08/18) Reported Meds & Prescriptions Reported Meds & Active Scripts Active Ibuprofen 600 Mg Tab 600 Mg PO Q8H PRN Bactrim DS (Sulfamethoxazole-Trimethoprim) 800-160 Mg Tab 1 Tab PO BID Review of Systems Except as stated in HPI: all other systems reviewed are Neg General / Constitutional: No: Fever, Chills HENT: No: Headaches, Lightheadedness Cardiovascular: No: Chest Pain or Discomfort Respiratory: No: Shortness of Breath Gastrointestinal: No: Nausea, Vomiting Genitourinary: No: Dysuria Musculoskeletal: No: Myalgias Skin: No Rash, No Change in Pigmentation Neurologic: No: Weakness, Dizziness Physical Exam Narrative GENERAL: Awake and alert, in no acute distress. SKIN: Focused skin assessment warm/dry. HEAD: Atraumatic. Normocephalic. EYES: Pupils equal and round. No scleral icterus. No injection or drainage. ENT: Mucous membranes pink and moist. NECK: Trachea midline. No JVD. CARDIOVASCULAR: Regular rate and rhythm. No murmur appreciated. RESPIRATORY: No accessory muscle use. Clear to auscultation. Breath sounds equal bilaterally. GASTROINTESTINAL: Abdomen soft, non-tender, nondistended. : Exam shows large swelling of the entire left labia that is erythematous and tender to palpation. MUSCULOSKELETAL: No obvious deformities. No clubbing. No cyanosis. No edema. NEUROLOGICAL: Awake and alert. No obvious cranial nerve deficits. Motor grossly within normal limits. Normal speech. PSYCHIATRIC: Appropriate mood and affect; insight and judgment normal. Data Data Last Documented VS Vital Signs Date Time Temp Pulse Resp B/P (MAP) Pulse Ox O2 Delivery O2 Flow Rate FiO2 01/10/18 13:15 98.7 78 16 134/80 (98) 100 Room Air Orders Orders Iv Access Insert/Monitor (01/10/18 15:04) Complete Blood Count With Diff (01/10/18 15:04) Comprehensive Metabolic Panel (01/10/18 15:04) Ct Pelvis W Iv Contrast(Rout) (01/10/18 ) Ed Urine Pregnancytest Poc (01/10/18 15:04) Psych Screen (01/10/18 15:04) Drug Screen, Random Urine (01/10/18 15:04) Alcohol (Ethanol) (01/10/18 15:04) Sodium Chlor 0.9% 1000 Ml Inj (Ns 1000 M (01/10/18 15:15) Ketorolac Inj (Toradol Inj) (01/10/18 15:15) Clindamycin 600 Mg/Ns Premix (Cleocin 60 (01/10/18 16:45) Labs Laboratory Tests Test 01/10/18 15:35 White Blood Count 13.1 TH/MM3 Red Blood Count 3.98 MIL/MM3 Hemoglobin 11.1 GM/DL Hematocrit 33.4 % Mean Corpuscular Volume 83.9 FL Mean Corpuscular Hemoglobin 27.9 PG Mean Corpuscular Hemoglobin Concent 33.3 % Red Cell Distribution Width 14.8 % Platelet Count 342 TH/MM3 Mean Platelet Volume 7.7 FL Neutrophils (%) (Auto) 82.6 % Lymphocytes (%) (Auto) 12.2 % Monocytes (%) (Auto) 4.9 % Eosinophils (%) (Auto) 0.2 % Basophils (%) (Auto) 0.1 % Neutrophils # (Auto) 10.9 TH/MM3 Lymphocytes # (Auto) 1.6 TH/MM3 Monocytes # (Auto) 0.6 TH/MM3 Eosinophils # (Auto) 0.0 TH/MM3 Basophils # (Auto) 0.0 TH/MM3 CBC Comment DIFF FINAL Differential Comment Blood Urea Nitrogen 8 MG/DL Creatinine 1.02 MG/DL Random Glucose 78 MG/DL Total Protein 8.3 GM/DL Albumin 2.9 GM/DL Calcium Level 8.7 MG/DL Alkaline Phosphatase 74 U/L Aspartate Amino Transf (AST/SGOT) 35 U/L Alanine Aminotransferase (ALT/SGPT) 38 U/L Total Bilirubin 0.2 MG/DL Sodium Level 141 MEQ/L Potassium Level 3.6 MEQ/L Chloride Level 106 MEQ/L Carbon Dioxide Level 25.3 MEQ/L Anion Gap 10 MEQ/L Estimat Glomerular Filtration Rate 63 ML/MIN Urine Opiates Screen NEG Urine Barbiturates Screen NEG Urine Amphetamines Screen NEG Urine Benzodiazepines Screen NEG Urine Cocaine Screen POS Urine Cannabinoids Screen NEG Ethyl Alcohol Level LESS THAN 3 MG/DL [facility] Medical Decision Making Medical Screen Exam Complete: Yes Emergency Medical Condition: Yes Medical Record Reviewed: Yes Differential Diagnosis pelvic abscess vs cellulitis vs sepsis Narrative Course Patient is a 32 year old female who comes in complaining of worsening vaginal pain. Exam shows swelling of the left labia that is tender to palpation. IV established, labs sent. Labs concerning for elevated WBC count. Given Clindamycin. CT pelvis ordered. Psych screen ordered. Signed out to Dr. Royal to follow up testing and disposition the patient. Diagnosis Primary Impression: Abscess of vagina Crystal Mejia MD Jan 10, 2018 16:56
--- NOTE | 2018-01-10 17:35 | RADRPT ---
EXAM DATE/TIME: 01/10/2018 17:00 [facility] COMPARISON: No previous studies available for comparison. INDICATIONS : Left sided pain with bartholin's cyst. IV CONTRAST: 86 cc Omnipaque 350 (iohexol) IV ORAL CONTRAST: No oral contrast ingested. RADIATION DOSE: 10.99 CTDIvol (mGy) MEDICAL HISTORY : Bartholin's cyst. SURGICAL HISTORY : Fusion, lumbar. Stimulator. ENCOUNTER: Initial ACUITY: 2 days PAIN SCALE: 9/10 LOCATION: Left groin region. TECHNIQUE: Volumetric scanning of the pelvis was performed. Using automated exposure control and adjustment of t he mA and/or kV according to patient size, radiation dose was kept as low as reasonably achievable to obtain optimal diagnostic quality images. DICOM format image data is available electronically for review and comparison. FINDINGS: BOWEL/MESENTERY: The visualized small and large bowel demonstrate no acute abnormality. There is no free fluid. BLADDER: There is no wall thickening or mass. RETROPERITONEUM: There are several small deep pelvic lymph nodes on the left in the internal iliac region and along th e external iliac vessels, left pelvic sidewall which may be reactive to the Bartholin's gland cyst, l argest just over a centimeter. REPRODUCTIVE: Circumscribed fluid density mass along the lower posterior vaginal wall region consistent with Bartho rashard's gland cyst which measures 5.1 x 1.9 cm (long axis by short axis). Mild peripheral/wall enhancem ent noted. Minimal likely physiologic free pelvic fluid. INGUINAL: There is no lymphadenopathy or hernia. MUSCULOSKELETAL: Previous lumbosacral hardware fusion. Spinal stimulator pack overlying the right iliac crest CONCLUSION: Bartholin's gland cyst on the left. Small potentially reactive lymph nodes in the left pelvis. Ketan Reyes MD on January 10, 2018 at 17:26 Board Certified Radiologist. This report was verified electronically.
--- NOTE | 2018-01-10 17:55 | PD ---
Physical Exam Narrative GENERAL: SKIN: Warm and dry. HEAD: Atraumatic. Normocephalic. EYES: Pupils equal and round. No scleral icterus. No injection or drainage. ENT: No nasal bleeding or discharge. Mucous membranes pink and moist. NECK: Trachea midline. No JVD. CARDIOVASCULAR: Regular rate and rhythm. RESPIRATORY: No accessory muscle use. Clear to auscultation. Breath sounds equal bilaterally. GASTROINTESTINAL: Abdomen soft, non-tender, nondistended. gu:shows large swelling of the entire left labia that is erythematous and tender to palpation MUSCULOSKELETAL: Extremities without clubbing, cyanosis, or edema. No obvious deformities. NEUROLOGICAL: Awake and alert. No obvious cranial nerve deficits. Motor grossly within normal limits. Five out of 5 muscle strength in the arms and legs. Normal speech. PSYCHIATRIC: Appropriate mood and affect; insight and judgment normal. Data Data Last Documented VS Vital Signs Date Time Temp Pulse Resp B/P (MAP) Pulse Ox O2 Delivery O2 Flow Rate FiO2 01/10/18 13:15 98.7 78 16 134/80 (98) 100 Room Air Orders Orders Iv Access Insert/Monitor (01/10/18 15:04) Complete Blood Count With Diff (01/10/18 15:04) Comprehensive Metabolic Panel (01/10/18 15:04) Ct Pelvis W Iv Contrast(Rout) (01/10/18 ) Ed Urine Pregnancytest Poc (01/10/18 15:04) Psych Screen (01/10/18 15:04) Drug Screen, Random Urine (01/10/18 15:04) Alcohol (Ethanol) (01/10/18 15:04) Sodium Chlor 0.9% 1000 Ml Inj (Ns 1000 M (01/10/18 15:15) Ketorolac Inj (Toradol Inj) (01/10/18 15:15) Clindamycin 600 Mg/Ns Premix (Cleocin 60 (01/10/18 16:45) Iohexol 350 Inj (Omnipaque 350 Inj) (01/10/18 13:15) Labs Laboratory Tests Test 01/10/18 15:35 White Blood Count 13.1 TH/MM3 Red Blood Count 3.98 MIL/MM3 Hemoglobin 11.1 GM/DL Hematocrit 33.4 % Mean Corpuscular Volume 83.9 FL Mean Corpuscular Hemoglobin 27.9 PG Mean Corpuscular Hemoglobin Concent 33.3 % Red Cell Distribution Width 14.8 % Platelet Count 342 TH/MM3 Mean Platelet Volume 7.7 FL Neutrophils (%) (Auto) 82.6 % Lymphocytes (%) (Auto) 12.2 % Monocytes (%) (Auto) 4.9 % Eosinophils (%) (Auto) 0.2 % Basophils (%) (Auto) 0.1 % Neutrophils # (Auto) 10.9 TH/MM3 Lymphocytes # (Auto) 1.6 TH/MM3 Monocytes # (Auto) 0.6 TH/MM3 Eosinophils # (Auto) 0.0 TH/MM3 Basophils # (Auto) 0.0 TH/MM3 CBC Comment DIFF FINAL Differential Comment Blood Urea Nitrogen 8 MG/DL Creatinine 1.02 MG/DL Random Glucose 78 MG/DL Total Protein 8.3 GM/DL Albumin 2.9 GM/DL Calcium Level 8.7 MG/DL Alkaline Phosphatase 74 U/L Aspartate Amino Transf (AST/SGOT) 35 U/L Alanine Aminotransferase (ALT/SGPT) 38 U/L Total Bilirubin 0.2 MG/DL Sodium Level 141 MEQ/L Potassium Level 3.6 MEQ/L Chloride Level 106 MEQ/L Carbon Dioxide Level 25.3 MEQ/L Anion Gap 10 MEQ/L Estimat Glomerular Filtration Rate 63 ML/MIN Urine Opiates Screen NEG Urine Barbiturates Screen NEG Urine Amphetamines Screen NEG Urine Benzodiazepines Screen NEG Urine Cocaine Screen POS Urine Cannabinoids Screen NEG Ethyl Alcohol Level LESS THAN 3 MG/DL [facility] Medical Record Reviewed: Yes Supervised Visit with FLOR: No Diagnosis Primary Impression: Abscess of vagina Gavino Royal MD Jan 10, 2018 17:55
[2018-01-10 22:45] VITALS: BP 129/75; PULSE 82; RESP 18; O2SAT 99
[2018-01-10] MEDS ORDERED: traMADol HCL 50 MG TAB PO ONE (23:45)
[2018-01-11 04:00] VITALS: BP 126/78; PULSE 78; RESP 18; O2SAT 98
--- NOTE | 2018-01-11 11:52 | PD ---
Physical Exam Time Seen by Provider: 11:48 ANDER Berrios has evaluated patient and cleared the patient for discharge. The patient is being provided by specimens to go to [facility] outpatient detox facility. Data Data Last Documented VS Vital Signs Date Time Temp Pulse Resp B/P (MAP) Pulse Ox O2 Delivery O2 Flow Rate FiO2 01/11/18 04:00 78 18 126/78 (94) 98 Room Air 01/10/18 13:15 98.7 Orders Orders Iv Access Insert/Monitor (01/10/18 15:04) Complete Blood Count With Diff (01/10/18 15:04) Comprehensive Metabolic Panel (01/10/18 15:04) Ct Pelvis W Iv Contrast(Rout) (01/10/18 ) Ed Urine Pregnancytest Poc (01/10/18 15:04) Psych Screen (01/10/18 15:04) Drug Screen, Random Urine (01/10/18 15:04) Alcohol (Ethanol) (01/10/18 15:04) Sodium Chlor 0.9% 1000 Ml Inj (Ns 1000 M (01/10/18 15:15) Ketorolac Inj (Toradol Inj) (01/10/18 15:15) Clindamycin 600 Mg/Ns Premix (Cleocin 60 (01/10/18 16:45) Iohexol 350 Inj (Omnipaque 350 Inj) (01/10/18 13:15) Diet Regular Basic (01/10/18 Dinner) Ketorolac Inj (Toradol Inj) (01/10/18 23:45) Tramadol (Ultram) (01/10/18 23:45) Labs Laboratory Tests Test 01/10/18 15:35 White Blood Count 13.1 TH/MM3 Red Blood Count 3.98 MIL/MM3 Hemoglobin 11.1 GM/DL Hematocrit 33.4 % Mean Corpuscular Volume 83.9 FL Mean Corpuscular Hemoglobin 27.9 PG Mean Corpuscular Hemoglobin Concent 33.3 % Red Cell Distribution Width 14.8 % Platelet Count 342 TH/MM3 Mean Platelet Volume 7.7 FL Neutrophils (%) (Auto) 82.6 % Lymphocytes (%) (Auto) 12.2 % Monocytes (%) (Auto) 4.9 % Eosinophils (%) (Auto) 0.2 % Basophils (%) (Auto) 0.1 % Neutrophils # (Auto) 10.9 TH/MM3 Lymphocytes # (Auto) 1.6 TH/MM3 Monocytes # (Auto) 0.6 TH/MM3 Eosinophils # (Auto) 0.0 TH/MM3 Basophils # (Auto) 0.0 TH/MM3 CBC Comment DIFF FINAL Differential Comment Blood Urea Nitrogen 8 MG/DL Creatinine 1.02 MG/DL Random Glucose 78 MG/DL Total Protein 8.3 GM/DL Albumin 2.9 GM/DL Calcium Level 8.7 MG/DL Alkaline Phosphatase 74 U/L Aspartate Amino Transf (AST/SGOT) 35 U/L Alanine Aminotransferase (ALT/SGPT) 38 U/L Total Bilirubin 0.2 MG/DL Sodium Level 141 MEQ/L Potassium Level 3.6 MEQ/L Chloride Level 106 MEQ/L Carbon Dioxide Level 25.3 MEQ/L Anion Gap 10 MEQ/L Estimat Glomerular Filtration Rate 63 ML/MIN Urine Opiates Screen NEG Urine Barbiturates Screen NEG Urine Amphetamines Screen NEG Urine Benzodiazepines Screen NEG Urine Cocaine Screen POS Urine Cannabinoids Screen NEG Ethyl Alcohol Level LESS THAN 3 MG/DL MDM Supervised Visit with FLOR: No Narrative Course ANDER Tyler has evaluated patient and cleared the patient for discharge. The patient is being provided by specimens to go to [facility] outpatient detox facility. Patient contracts safety. Denies suicidal or homicidal ideations. Patient will be provided community resource packet to [facility] for follow-up. Has friends and family for support. Patient was medically cleared by alternate provider prior to psych screening. Patient has been evaluated by psychiatry and and is now cleared for discharge. Diagnosis Primary Impression: Abscess of vagina Additional Impression: Polysubstance abuse Referrals: [facility] (Out patient) [facility] Primary Care Physician Psychiatrist Bret G[facility] Patient Instructions: Abscess (ED), Abscess Follow-up (ED), General Instructions, Polysubstance Abuse (ED) Additional Instruction: FIll your prescription for Bactrim; it is free at [facility] Complete full course of antibiotics Warm compresses to the affected area Keep area clean and dry Ibuprofen or Tylenol as directed and as needed for pain and inflammation Follow-up with primary care provider Return to emergency department immediately with worsening of symptoms Med/Other Pt SpecificInfo: No Change to Meds, No Meds Exist/No RX given Disposition: 01 DISCHARGE HOME Condition: Stable Khushboo Kirkland Jan 11, 2018 11:52
--- NOTE | 2018-01-11 12:31 | PD ---
History of Present Illness Chief Complaint: Depression Time Seen by Provider: 11:45 Travel History International Travel<30 Days: No Contact w/Intl Traveler<30days: No Known affected area: No Legal Status Legal Status: Voluntary History of Present Illness: Ms. Kearns is a 32-year-old , , homeless female who presents to the ED with complaints of a Bartholin's cyst and depression. She advised the ED provider that she is "depressed because she is homeless and that she is trying not to use drugs". Her toxicology screen is positive for cocaine and she admits to smoking crack on the 18th of this month. She claims to have suicidal thoughts with no specific plan. [facility] Past Medical History Narrative Medical Reviewed electronic medical record and labs. Patient medically cleared by ED. Arthritis: No Blood Disorders: No Bipolar Disorder: Yes Anxiety: No Depression: Yes Cancer: No Cardiovascular Problems: No Chemotherapy: No Diabetes: No Diminished Hearing: No Endocrine: No Gastrointestinal Disorders: No Genitourinary: No Headaches: No Immune Disorder: No Implanted Vascular Access Dvce: Yes Musculoskeletal: Yes Neurologic: No Psychiatric: Yes Reproductive: No Respiratory: No Immunizations Current: No (UNABLE TO ASSESS) Radiation Therapy: No Seizures: No ?: Not LMP: 01/05/2018 : 0 Past Surgical History Abdominal Surgery: No AICD: No Body Medical Devices: tens unit for back pain. Cardiac Surgery: No Ear Surgery: No Endocrine Surgery: No Eye Surgery: No Genitourinary Surgery: No Gynecologic Surgery: No Insulin Pump: No Joint Replacement: No Neurologic Surgery: Yes Oral Surgery: No Pacemaker: No Thoracic Surgery: No Other Surgery: Yes ("I HAD 7 BACK SURGERIES.") Psychiatric History Psychiatric History Ms. Kearns has been to this facility on multiple occasions. She reports being released from detention in July and has failed to establish with an outpatient provider to restart her medications. She denies any previous attempts at suicide. She does state that she "tried it a few times in high school" in regards to cutting behavior. Hx Psychiatric Treatment: Patient has had many admissions here for multiple different diagnoses. History of Inpatient Treatment: Yes Guns or firearms in home: No Social History By her own admission patient smokes crack cocaine. Denies smoking cigarettes or using alcohol. She states that she has been homeless since being released from detention in July. Hx Alcohol Use: No Hx Tobacco Use: No Hx Substance Use: Yes Substance Use Type: Cocaine Other Substances Used: Patient states she's abused "everything". Hx of Substance Use Treatment: Yes ("A long time ago at [facility] Family Psychiatric History Ms. Kearns states that she was adopted. She was made aware that her biological parents have mental health issues and history of substance abuse. Allergies-Medications (Allergen,Severity, Reaction): Coded Allergies: No Known Allergies (Unverified , 01/08/18) Reported Meds & Prescriptions Reported Meds & Active Scripts Active Ibuprofen 600 Mg Tab 600 Mg PO Q8H PRN Bactrim DS (Sulfamethoxazole-Trimethoprim) 800-160 Mg Tab 1 Tab PO BID Review of Systems Other Reviewed electronic medical record and labs. Medically cleared by ED staff. Mental Status Examination Appearance: Disheveled Consciousness: Alert Orientation: x4 Motor Activity: Other (In bed) Speech: Unremarkable Language: Adequate Fund of Knowledge: Adequate Attention and Concentration: Adequate Memory: Unremarkable Mood: Appropriate Affect: Appropriate Thought Process & Associations: Intact Thought Content: Appropriate Hallucination Type: None Delusion Type: None Suicidal Ideation: No Suicidal Plan: No Suicidal Intention: No Homicidal Ideation: No Homicidal Plan: No Homicidal Intention: No Insight: Adequate Judgment: Poor (continues to smoke crack cocaine) Mental Status Exam Remarks Reviewed electronic medical record, labs, and spoke with medical staff. Patient interviewed in her room in the main ED. She initially appeared to be asleep, woke to verbal stimuli. Patient stated that she "was suicidal last night". When asked if she still felt suicidal this morning she stated "yes". When asked if she wanted to kill herself, patient stated "I don't want to ". She does report feeling depressed due to her homelessness and drug use. However, she has taken no steps to establish outpatient treatment. Ms Kearns's speech is clear, she is A&O x 4, appropriate in mood and affect, and shows no clinical signs of depression. Nursing staff advised she had been sleeping quietly for several hours. This provider observed that the food had been consumed from the breakfast tray on the bedside table. She is future oriented, stating that she wants to "get help for the drug use". [facility] Medical Decision Making Medical Record Reviewed: Yes Assessment/Plan Although Ms Kearns reports feeling "depressed" she has no discernible signs at present. Her illicit drug use is likely the cause of her feelings. Inpatient admission would not be beneficial to her at this time. Explained to her that she needs to establish with outpatient resources and consistently comply with treatment/appointments. Patient provided with address and information for [facility] outpatient drug detox and instructed to go straight there. Patient acknowledges understanding of plan and states that she will comply. Request HC Surrog/Guard Advoc?: No Orders Orders Iv Access Insert/Monitor (01/10/18 15:04) Complete Blood Count With Diff (01/10/18 15:04) Comprehensive Metabolic Panel (01/10/18 15:04) Ct Pelvis W Iv Contrast(Rout) (01/10/18 ) Ed Urine Pregnancytest Poc (01/10/18 15:04) Psych Screen (01/10/18 15:04) Drug Screen, Random Urine (01/10/18 15:04) Alcohol (Ethanol) (01/10/18 15:04) Sodium Chlor 0.9% 1000 Ml Inj (Ns 1000 M (01/10/18 15:15) Ketorolac Inj (Toradol Inj) (01/10/18 15:15) Clindamycin 600 Mg/Ns Premix (Cleocin 60 (01/10/18 16:45) Iohexol 350 Inj (Omnipaque 350 Inj) (01/10/18 13:15) Diet Regular Basic (01/10/18 Dinner) Ketorolac Inj (Toradol Inj) (01/10/18 23:45) Tramadol (Ultram) (01/10/18 23:45) Ed Discharge Order (01/11/18 11:52) Results Vital Signs Date Time Temp Pulse Resp B/P (MAP) Pulse Ox O2 Delivery O2 Flow Rate FiO2 01/11/18 04:00 78 18 126/78 (94) 98 Room Air 01/10/18 22:45 82 18 129/75 (93) 99 Room Air 01/10/18 13:15 98.7 78 16 134/80 (98) 100 Room Air Laboratory Tests Test 01/10/18 15:35 White Blood Count 13.1 Red Blood Count 3.98 Hemoglobin 11.1 Hematocrit 33.4 Mean Corpuscular Volume 83.9 Mean Corpuscular Hemoglobin 27.9 Mean Corpuscular Hemoglobin Concent 33.3 Red Cell Distribution Width 14.8 Platelet Count 342 Mean Platelet Volume 7.7 Neutrophils (%) (Auto) 82.6 Lymphocytes (%) (Auto) 12.2 Monocytes (%) (Auto) 4.9 Eosinophils (%) (Auto) 0.2 Basophils (%) (Auto) 0.1 Neutrophils # (Auto) 10.9 Lymphocytes # (Auto) 1.6 Monocytes # (Auto) 0.6 Eosinophils # (Auto) 0.0 Basophils # (Auto) 0.0 CBC Comment DIFF FINAL Differential Comment Blood Urea Nitrogen 8 Creatinine 1.02 Random Glucose 78 Total Protein 8.3 Albumin 2.9 Calcium Level 8.7 Alkaline Phosphatase 74 Aspartate Amino Transf (AST/SGOT) 35 Alanine Aminotransferase (ALT/SGPT) 38 Total Bilirubin 0.2 Sodium Level 141 Potassium Level 3.6 Chloride Level 106 Carbon Dioxide Level 25.3 Anion Gap 10 Estimat Glomerular Filtration Rate 63 Urine Opiates Screen NEG Urine Barbiturates Screen NEG Urine Amphetamines Screen NEG Urine Benzodiazepines Screen NEG Urine Cocaine Screen POS Urine Cannabinoids Screen NEG Ethyl Alcohol Level LESS THAN 3 Diagnosis Primary Impression: Abscess of vagina 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 Address provided. [facility] Primary Care Physician Psychiatrist Bret GARZA Behavioral Departure Forms: Tests/Procedures Patient Instructions: General Instructions, Abscess (ED), Polysubstance Abuse ( ED), Abscess Follow-up (ED) Additional Instructions: FIll your prescription for Bactrim; it is free at [facility] Complete full course of antibiotics Warm compresses to the affected area Keep area clean and dry Ibuprofen or Tylenol as directed and as needed for pain and inflammation Follow-up with primary care provider Return to emergency department immediately with worsening of symptoms Disposition: 01 DISCHARGE HOME Condition: Stable Problem Qualifiers Deborah Donovan Jan 11, 2018 12:31
== END 2018-01-11 12:23 | disposition home or self-care (01) ==
LOC: NEPD 13:14
DX: N76.0 Acute vaginitis (principal); F31.9 Bipolar disorder, unspecified; F14.90 Cocaine use, unspecified, uncomplicated; Z59.0 Homelessness
CPT/HCPCS: 72193; 80053; 80307; 84703; 85025; 96361; 96365; 96366; 96375; 99284; J1885; J7030; Q9967